=== PATIENT | male | born 1965 | race Caucasian/White ===

== ENCOUNTER 2023-04-15 14:22 | Emergency (ER) | payer MEDICARE, OTHER, SELFPAY ==
[2023-04-15 14:27] VITALS: BP 158/120
--- NOTE | 2023-04-15 15:11 | ED.GENMED ---
History of Present Illness
General
Chief Complaint: Head Injury
Source: patient and health care liaison
Exam Limitations: none
Time Seen by Provider: 04/15/23 14:58
Nursing documentation reviewed up to this point in time: agreed with
Travel History
Have you had any contact with someone who has COVID-19?: No
Do you have any symptoms of coronavirus? Fever > 100 degrees, chills, cough, shortness of breath, sore throat, loss of taste or smell, muscle aches, or headache?: No
History of Present Illness
History of Present Illness:
58-year-old male with history of schizophrenia, anxiety, parkinsonism, HLD presents from [facility] for evaluation for head injury. Patient states he was bending over to pick something up, fell forward and struck the top of his
head into drywall. His caregiver has a picture of the wall and there is a big indentation where the drywall is all broken. This occurred about 3 hours ago. There was no loss of consciousness, the patient has been acting normally since. Patient
denies headache, neck pain or any other injury. He denies N/V. He is to go back home
Past History
Past History
ED Past Medical History: Psychiatric (Schizoaffective disorder)
ED Past Surgical History: None
Social History
Tobacco: Smoker
Alcohol: None
Personal: Single
Living: other ([facility])
Review of Systems
Review of Systems
Allergies reviewed?: Yes
All Other Systems: ROS reviewed and negative except as documented in HPI and ROS
Respiratory: Denies trouble breathing
Cardiac: Denies chest pain or syncope
ABD/GI: Denies abdominal pain, nausea or vomiting
Musculoskeletal: Denies neck pain or back pain
Skin: Reports no symptoms
Neurological: Denies dizzy, headache, weakness or numbness
Phy Exam
Physical Exam
Physical Exam:
GENERAL: No acute distress. A&Ox3.
CONSTITUTIONAL: Afebrile.
EYES: PERRL, conjunctivae normal
Neck: Supple
ENMT: moist mucus membranes, Pharynx nl
RESPIRATORY: Regular respirations, nonlabored, lungs clear.
CARDIOVASCULAR: Regular rate and rhythm, no murmurs, no rubs.
GI: Soft, nontender, normal BS
MUSCULOSKELETAL: No spinal bony tenderness. Moves with ease. Well perfused.
SKIN: Warm, dry, pink
PSYCH: Normal mood and affect. Well kept, interactive and appropriate
NEUROLOGIC: Awake, alert and oriented. Speech clear. [id number] intact. Cranial nerves II through XII intact. Ambulating well with steady gait no focal neurological deficits
Course
Orders/Labs/Results
Orders:
Orders
04/15/23 15:15
Vital Signs- Treatment ONCE
Frequency: Once
Comment: Please recheck blood pressure
Vital Signs
Initial and Last Documented VS:
Initial Vital Signs
Temp Pulse Resp BP Pulse Ox
98.6 F 98 18 158/120 97
04/15/23 14:27 04/15/23 14:27 04/15/23 14:27 04/15/23 14:27 04/15/23 14:27
Last Documented Vital Signs
Temp Pulse Resp BP Pulse Ox
98.6 F 92 20 170/96 97
04/15/23 14:27 04/15/23 15:38 04/15/23 15:38 04/15/23 15:38 04/15/23 15:38
MDM/Problems Addressed
MDM/Problems Addressed:
58-year-old male presents from [facility] for evaluation for head injury. Patient states he was bending over to pick something up, fell forward and struck the top of his head into drywall. His caregiver has a picture of the wall
and there is a big indentation where the drywall is all broken. This occurred about 3 hours ago. There was no loss of consciousness, the patient has been acting normally since. Patient denies headache, neck pain or any other injury. He denies
N/V. He is to go back home
Patient is pleasant, alert and very active. No focal neurological deficits, no loss of conscious, not anticoagulated, no indication for head CT.
Patient out of bed and moving around well, normocephalic
Stable for discharge
*Critical Care Note
Total Time (30-74mins, 75-104mins- exclusive of procedures): Not Applicable
ED Attending Note
-
Portions of this chart may have been created with voice recognition software.� Occasional wrong word or��sound alike� substitutions may have occurred due to the inherent limitations of voice recognition software.
Discharge Plan
Departure
Patient Disposition: Home (Routine Discharge)
Date of Disposition: 04/15/23
Time of Disposition: 15:14
Patient with high blood pressure during this ER visit?: Yes
Condition: Good
Discharge Problem:
Head injury, acute, without loss of consciousness
Instructions: Head Injury in Adults (DC)
Prescriptions:
No Action
fluphenazine HCl 10 MG tablet
10 mg PO BID
lithium carbonate 600 MG capsule
600 mg PO BID
lisinopril 10 MG tablet
10 mg PO DAILY
divalproex 500 MG tablet extended release 24 hr
1,000 mg PO HS
benztropine 1 MG tablet
1 mg PO BID
hydrochlorothiazide 12.5 MG capsule
12.5 mg PO DAILY
docusate sodium [Colace] 100 MG capsule
100 mg PO BID
clozapine 200 MG tablet
400 mg PO HS
Activity Restrictions/Additional Instructions:
As we discussed, I see nothing worrisome in your exam.
If you develop vomiting more than once in 1 hour, confusion or headache that gets worse and worse despite Tylenol return here immediately for reevaluation.
Interventions
Interventions:
*Risk Screen - Suicide Last Done: 04/15/23 14:59
*General Assessment Last Done: 04/15/23 14:57
*Neglect/Abuse Screening Last Done: 04/15/23 14:57
ED- Fall Risk Assessment Last Done: 04/15/23 15:35
*ED COVID-19 Vaccine History Last Done: 04/15/23 14:57
*Nursing Disposition Last Done: 04/15/23 15:38
ED- Neurological Assessment Last Done: 04/15/23 15:35
ED-Skin Assessment Last Done: 04/15/23 15:35
Discharge Date and Time
Discharge Date/Time: 04/15/23 15:43
[2023-04-15 15:38] VITALS: BP 170/96
== END 2023-04-15 15:43 | disposition home or self-care (01) ==
LOC: EMR 14:22
PROVIDERS: EMERGENCY PHYSICIAN Emergency Medicine; FAMILY PHYSICIAN Family Medicine
DX: S09.90XA Unspecified injury of head, initial encounter (principal); W22.01XA Walked into wall, initial encounter; F17.200 Nicotine dependence, unspecified, uncomplicated; R03.0 Elevated blood-pressure reading, without diagnosis of hypertension
CPT/HCPCS: 99281

== ENCOUNTER → 2023-05-16 11:55 | Outpatient (REF) | payer MEDICARE, OTHER, SELFPAY | LOC: HWRAD 11:55 | PROVIDERS: ATTENDING PHYSICIAN Physician Assistant | DX: F17.210 Nicotine dependence, cigarettes, uncomplicated (principal) | CPT/HCPCS: 71271 ==

== ENCOUNTER → 2023-06-28 11:43 | Outpatient (REF) | payer MEDICARE, OTHER, SELFPAY | LOC: HWCARD 11:43 | PROVIDERS: ATTENDING PHYSICIAN Registered Nurse | DX: R94.31 Abnormal electrocardiogram [ECG] [EKG] (principal); Z79.899 Other long term (current) drug therapy | CPT/HCPCS: 93005 ==

== ENCOUNTER 2024-10-15 18:12 | Emergency (ER) | payer OTHER, SELFPAY ==
[2024-10-15 18:14] VITALS: BP 173/115
--- NOTE | 2024-10-15 19:51 | ED.GENMED ---
History of Present Illness
General
Chief Complaint: Crisis Evaluation
Source: patient and other ([facility] at [facility] who I spoke to over the phone)
Exam Limitations: none
Time Seen by Provider: 10/15/24 19:17
Nursing documentation reviewed up to this point in time: agreed with
History of Present Illness
History of Present Illness:
The patient is a 59-year-old man with a past medical history of schizophrenia who arrives from [facility]. Patient is a vague historian. Reportedly, when I spoke to the cutting and splicing supervisor at at the patient's residence, she reported that the
patient grew angry and agitated when asked to take his medication this morning. It was reported that the patient used profanity but did not physically hurt anyone and eventually did take his morning medication. Patient did admit to me that he was
screaming earlier in the day and does not like to take his medications because he does not like to get up. Reportedly, the patient requested to come to the hospital, however, the patient denies physical pain to me and any concerns to me. He denies
wanting to hurt anybody. He denies any suicidal thoughts. He reports that he hears a voice that he believes is his father ' telling him to go to [facility]'. He denies chest pain, shortness of breath, dizziness, and cough. Patient is eating a turkey
sandwich and is calm with me.
Past History
Past History
ED Past Medical History: Hypercholesterolemia, Psychiatric (Schizoaffective disorder) and Other
ED Past Surgical History: Other
Social History
Tobacco: Smoker
Alcohol: None
Drug: Other
Personal: Single
Living: other ([facility])
Employment: Other
Family History
Family History: Other
Review of Systems
Review of Systems
Allergies reviewed?: Yes
Constitutional: Reports no symptoms
Respiratory: Reports no symptoms
Cardiac: Reports no symptoms
ABD/GI: Reports no symptoms
: Reports no symptoms
Musculoskeletal: Reports no symptoms
Skin: Reports no symptoms
Endocrine: Reports no symptoms
Hematologic/Lymphatic: Reports no symptoms
Psychiatric: Reports hallucinations (Auditory hallucinations from his father)
Phy Exam
Physical Exam
Physical Exam:
Physical Exam
General: Disheveled but calm, eating a turkey sandwich
Neck: supple. no meningeal signs. normal posterior pharynx
Heart: s1/s2 regular rate and rhythm, no murmur. equal radial pulses.
Lungs: no acute respiratory distress. clear bilaterally
Abdomen: normal bowel sounds. not tender. no CVAT
Neuro: alert and orientedx3. no focal neurological deficits
Skin: no rash
Psychiatric: well kept. At times appears distracted and takes a while to answer questions but eventually answers the question.
Extremities: no edema. no calf tenderness. negative homans. good distal pulses
Course
Orders/Labs/Results
Orders:
Orders
10/15/24 18:38
Crisis Consult Urgent
Reason for Consult: schizophrenia, aggression, refused meds this AM.
Comment: Lives at [facility]
10/15/24 19:51
Lorazepam [Ativan] 1 mg PO NOW STA
10/15/24 20:15
Melatonin 10 mg PO NOW STA
10/15/24 20:19
Haloperidol [Haldol] 20 mg PO NOW STA
10/15/24 20:35
[place] Carbonate Regular Rel. [Eskalith Regular Release] 900 mg PO NOW STA
Vital Signs
Initial and Last Documented VS:
Initial Vital Signs
Temp Pulse Resp BP Pulse Ox
98.6 F 84 18 173/115 98
10/15/24 18:14 10/15/24 18:14 10/15/24 18:14 10/15/24 18:14 10/15/24 18:14
Last Documented Vital Signs
Temp Pulse Resp BP Pulse Ox
98.4 F 80 18 150/87 96
10/15/24 21:42 10/15/24 23:01 10/15/24 21:42 10/15/24 23:01 10/15/24 23:01
MDM/Problems Addressed
Differential Diagnosis Includes:
Acute on chronic schizophrenia, acute UTI
MDM/Problems Addressed:
Patient presents after reportedly having agitated behavior
Acute Exacerbation and/or Progression of Chronic Illness: Psychiatric illness
*Pulse Oximetry
SaO2: 98
Oxygen Mode of Delivery: Room air
Patient hypoxic: no
*EKG
Interpreted by ED Provider?: NA
*Display Mechanic Interpretation
Rate: Display Mechanic- N/A
*Critical Care Note
Total Time (30-74mins, 75-104mins- exclusive of procedures): Not Applicable
Data Reviewed
Source: patient and other ([facility] at [facility])
Further Testing Considered But Not Given:
Patient has a normal neurological exam. There is no sign of stroke. He is taking his medication here and has been calm and cooperative. He has been directable. He has had no chest pain or physical complaints, therefore, I do not think patient
needs emergent blood work.
Patient Management
Social determinants of health affecting care: Living situation and Strong social support
Discussion with other providers: Other (Crisis came to evaluate patient. They do not feel there is an acute psychiatric issue)
Escalation/DeEscalation of care consider admission/obs:
Patient has been calm and cooperative. He denies suicidal and homicidal thoughts. He is eating and resting. He has a normal neurological exam and has a steady gait. I do not feel he needs emergent blood work. He has been afebrile. He has no
complaints of urinary symptoms such as burning or frequency.
ED Attending Note
-
Portions of this chart may have been created with voice recognition software.� Occasional wrong word or��sound alike� substitutions may have occurred due to the inherent limitations of voice recognition software.
Discharge Plan
Departure
Patient Disposition: Home (Routine Discharge)
Date of Disposition: 10/15/24
Time of Disposition: 23:20
Patient with high blood pressure during this ER visit?: Yes
Condition: Good
Covid-19: Not Applicable
Discharge Problem:
Behavioral health-related complaint
Instructions: BLOOD PRESSURE
Prescriptions:
No Action
fluphenazine HCl 10 MG tablet
10 mg PO BID
lithium carbonate 600 MG capsule
600 mg PO BID
lisinopril 10 MG tablet
10 mg PO DAILY
divalproex 500 MG tablet extended release 24 hr
1,000 mg PO HS
benztropine 1 MG tablet
1 mg PO BID
hydrochlorothiazide 12.5 MG capsule
12.5 mg PO DAILY
docusate sodium [Colace] 100 MG capsule
100 mg PO BID
clozapine 200 MG tablet
400 mg PO HS
Referrals:
Amrita Hugo PA-C [Family Provider, Internal Medicine]
Activity Restrictions/Additional Instructions:
Stephen was given 900 mg of lithium, 20 mg of Haldol, 1 mg of Ativan, and 10 mg of melatonin around 8:00 PM tonight.
This was given to him according to the medication list that was sent with him. Additionally, Ativan was given to him due to patient request.
Interventions
Interventions:
*Risk Screen - Suicide Last Done: 10/15/24 19:00
*General Assessment Last Done: 10/15/24 19:00
*Neglect/Abuse Screening Last Done: 10/15/24 19:00
*ED- Fall Risk Assessment Last Done: 10/15/24 19:00
ED-Psychological Assessment Last Done: 10/15/24 18:14
Discharge Date and Time
Print Language: BOLIVIAN
[2024-10-15] MEDS: ATIVAN 1 MG PO (19:56)
[2024-10-15] MEDS: HALDOL 20 MG PO (20:56)
[2024-10-15] MEDS: MELATONIN 10 MG PO (20:57)
[2024-10-15] MEDS: ESKALITH REGULAR RELEASE 900 MG PO (20:57)
[2024-10-15 21:42] VITALS: BP 184/87
[2024-10-15 23:01] VITALS: BP 150/87
--- NOTE | 2024-10-16 02:42 | DOWNTIME ---
There was a [employer] Downtime on 10/16/2024 from 0100 to 10/16/2024 at 0235. Downtime documentation of patient's care, including medication administrations, has been reconciled in the electronic record per guidelines. Refer to the
patient's paper chart under the miscellaneous tab to see printed paper medication records and downtime forms.
== END 2024-10-16 06:26 | disposition home or self-care (01) ==
LOC: EMR 18:12
PROVIDERS: EMERGENCY PHYSICIAN Emergency Medicine; FAMILY PHYSICIAN Physician Assistant
DX: F20.9 Schizophrenia, unspecified (principal); R45.1 Restlessness and agitation; E78.00 Pure hypercholesterolemia, unspecified; F17.200 Nicotine dependence, unspecified, uncomplicated
CPT/HCPCS: 99283

== ENCOUNTER 2024-10-25 23:22 | Emergency (ER) | payer OTHER, SELFPAY ==
[2024-10-25 23:51] VITALS: BP 118/70
[2024-10-26 00:42] VITALS: BP 133/68
--- NOTE | 2024-10-26 01:24 | ED.GENMED ---
History of Present Illness
General
Chief Complaint: Sleep Disturbances
Source: patient
Time Seen by Provider: 10/26/24 00:25
History of Present Illness
History of Present Illness:
Note:
CHIEF COMPLAINT(S)
Auditory hallucinations and concerns about medication effects.
HISTORY OF PRESENT ILLNESS
The patient is a 59-year-old male who presented to the emergency department with auditory hallucinations, specifically hearing thunder. He expressed feeling terrified and attributed his distress to problems related to his father. He denied any
suicidal thoughts. The patient mentioned that his medication, Ativan, has him 'screwed up,' indicating possible side effects or ineffective management of his symptoms. He resides in [place] and expressed some confusion during the conversation.
PHYSICAL EXAM
General: Alert, no acute distress.
Skin: Warm, dry.
Head: Normocephalic, atraumatic.
Neck: Supple, trachea midline.
Eye, Ears, Nose, Mouth and Throat: Oral mucosa moist, tongue-smacking observed.
Cardiovascular: Normal peripheral perfusion, No edema.
Respiratory: Respirations are non-labored.
Gastrointestinal: Abdomen nondistended.
Back: Normal range of motion, Normal alignment.
Musculoskeletal: Normal range of motion, normal strength.
Neurological: Alert and oriented to person, place, time, and situation, No focal neurological deficit observed.
Psychiatric: Cooperative, appropriate mood & affect, though speech is sometimes difficult to understand.
DIFFERENTIAL DIAGNOSIS
The Differential Diagnosis includes, in no particular order and is not limited to:
1. Medication side effects
2. Psychiatric disorder (e.g., schizophrenia, bipolar disorder with psychotic features)
3. Substance-induced psychotic disorder
4. Delirium
5. Temporal lobe epilepsy
6. Major depressive disorder with psychotic features
7. Dementia with Lewy bodies
8. Anxiety disorder
9. Post-traumatic stress disorder
10. Auditory hallucination due to hearing impairment
CARE-UPDATE
10/26/24 - 01:13
Crisis team assessed the patient and confirmed no suicidal ideation. Patients mental status is approaching baseline. Coordination with the patients current living house is underway to verify if they are prepared to receive him back.
Disposition:
SUMMARY OF ENCOUNTER
The patient, a 59-year-old male, presented to the emergency department with auditory hallucinations, specifically hearing thunder, and expressed concerns regarding his medication Ativan (Lorazepam). He was assessed by the crisis team, and no
suicidal ideation was noted. The patient resides in a prison in [place] and has expressed some frustration with his living facility. His mental status is approaching baseline.
DISPOSITION
Discharge to prison.
ASSESSMENT
The patient appears stable with no suicidal ideation. The auditory hallucinations and confusion may be attributed to possible side effects of his current medication regimen or other psychiatric or neurological conditions as listed in the
differential diagnosis. Coordination with the patients living facility has been established for his return.
MANAGEMENT OF THE PATIENTS CARE WAS DISCUSSED WITH
Crisis team and the patient�s prison.
PLAN
Discharge the patient back to his prison with coordination made with crisis services to ensure a stable transition.
PATIENT EDUCATION AND COUNSELING
The patient was educated about continuing to monitor his symptoms and report any exacerbations or new symptoms to his healthcare provider. Emphasis was placed on the importance of medication adherence and follow-up with his outpatient mental health
provider.
FOLLOW-UP INSTRUCTIONS
Arrange for follow-up with the patients primary mental health provider to evaluate and possibly adjust his medication regimen as necessary.
MEDICAL DECISION MAKING
- Complexity of Data Reviewed: Chronic conditions affecting care include potential medication side effects, psychiatric disorder, substance-induced psychotic disorder, delirium, temporal lobe epilepsy, major depressive disorder with psychotic
features, dementia with Lewy bodies, anxiety disorder, PTSD, and auditory hallucination due to hearing impairment.
- Data:
Category 3: Discussion of management with the crisis team and coordination with the patient�s prison.
- Risk: Prescription drug management or therapy requiring monitoring for toxicity. Consideration of Admission/Observation: Escalation of care including admission/observation was considered given the complexity and risk of the patients presenting
complaint, exam findings, and/or their underlying comorbidities. However, ultimately I feel the patient is safe for outpatient management with close follow up. Reasoning: Work-up reassuring, does not reveal any acute life/organ threatening
processes, patients symptoms well controlled upon reevaluation, reexamination is reassuring, vitals are stable, patient agreeable with discharge, reliable for follow-up.
DIAGNOSIS
Psychotic disorder, unspecified (ICD-10: F29).
Past History
Past History
ED Past Medical History: Hypercholesterolemia, Psychiatric (Schizoaffective disorder) and Other
ED Past Surgical History: Other
Social History
Tobacco: Smoker
Alcohol: None
Drug: Other
Personal: Single
Living: other ([facility])
Employment: Other
Family History
Family History: Other
Phy Exam
Physical Exam
Physical Exam:
.
Course
Orders/Labs/Results
Orders:
Orders
10/26/24 00:36
Crisis Consult Urgent
Reason for Consult: schizophrenia
Vital Signs
Initial and Last Documented VS:
Initial Vital Signs
Temp Pulse Resp Pulse Ox
97.2 F 75 18 97
10/25/24 23:48 10/25/24 23:48 10/25/24 23:48 10/25/24 23:48
Last Documented Vital Signs
Temp Pulse Resp BP Pulse Ox
98.1 F 72 16 133/68 94
10/26/24 00:42 10/26/24 00:42 10/26/24 00:42 10/26/24 00:42 10/26/24 00:42
*Pulse Oximetry
SaO2: 96
Oxygen Mode of Delivery: Room air
Patient hypoxic: no
*Critical Care Note
Total Time (30-74mins, 75-104mins- exclusive of procedures): Not Applicable
ED Attending Note
-
Portions of this chart may have been created with voice recognition software.� Occasional wrong word or��sound alike� substitutions may have occurred due to the inherent limitations of voice recognition software.
Discharge Plan
Departure
Patient Disposition: Home (Routine Discharge)
Date of Disposition: 10/26/24
Time of Disposition: 01:26
Patient with high blood pressure during this ER visit?: No
Discharge Problem:
Schizophrenia
Instructions: Schizophrenia
Prescriptions:
No Action
fluphenazine HCl 10 MG tablet
10 mg PO BID
lithium carbonate 600 MG capsule
600 mg PO BID
lisinopril 10 MG tablet
10 mg PO DAILY
divalproex 500 MG tablet extended release 24 hr
1,000 mg PO HS
benztropine 1 MG tablet
1 mg PO BID
hydrochlorothiazide 12.5 MG capsule
12.5 mg PO DAILY
docusate sodium [Colace] 100 MG capsule
100 mg PO BID
clozapine 200 MG tablet
400 mg PO HS
Referrals:
Amrita Hugo PA-C [Family Provider, Internal Medicine]
Activity Restrictions/Additional Instructions:
Please see your psychiatrist in the next 1 week for follow-up and reevaluation. Return immediately for suicidal ideation, worsening symptoms or any other concerns.
Interventions
Interventions:
*Risk Screen - Suicide Last Done: 10/25/24 23:48
*General Assessment Last Done: 10/25/24 23:48
*Neglect/Abuse Screening Last Done: 10/25/24 23:48
*ED- Fall Risk Assessment Last Done: 10/26/24 00:26
*ED COVID-19 Vaccine History Last Done: 10/26/24 00:26
ED-Suicide Risk Assessment Last Done: 10/26/24 00:34
ED- Neurological Assessment Last Done: 10/26/24 00:28
ED-Psychological Assessment Last Done: 10/26/24 00:28
Discharge Date and Time
Print Language: DOMINICAN
[2024-10-26 02:20] VITALS: BP 112/60
== END 2024-10-26 02:20 | disposition home or self-care (01) ==
LOC: EMR 23:22
PROVIDERS: EMERGENCY PHYSICIAN Emergency Medicine; FAMILY PHYSICIAN Physician Assistant
DX: F25.9 Schizoaffective disorder, unspecified (principal); F17.200 Nicotine dependence, unspecified, uncomplicated
CPT/HCPCS: 99283

== ENCOUNTER 2024-10-31 13:45 | Emergency (ER) | payer MEDICARE, OTHER, SELFPAY ==
[2024-10-31 14:01] VITALS: BP 104/54
[2024-10-31 14:07] VITALS: BMI 39.4
--- NOTE | 2024-10-31 14:15 | EDRN ---
Dr. Nagy in with pt at this time.
--- NOTE | 2024-10-31 14:18 | ED.GENMED ---
History of Present Illness
General
Chief Complaint: Suicidal Ideation
Source: patient
Time Seen by Provider: 10/31/24 14:09
History of Present Illness
History of Present Illness:
Patient presents emergency department after being referred from the [facility] for suicidal ideation. Patient has somewhat tangential speech/thoughts, but does admit to suicidal ideation and describes wanting to drink a bottle of
[place] in order to do that. He denies any physical complaints such as chest pain, shortness of breath, headache, etc.
Past History
Past History
ED Past Medical History: Hypercholesterolemia, Psychiatric (Schizoaffective disorder) and Other (Hepatitis, hyperlipidemia)
Social History
Tobacco: Smoker
Alcohol: None
Personal: Single
Living: other (care home [facility])
Family History
Family History: Other
Phy Exam
Physical Exam
Physical Exam:
GENERAL: Alert , in no apparent distress, slightly unkempt
EYE: pupils equal and reactive
NECK: Supple, no significant adenopathy.
ENT: o/p clr, mmm.
CARDIAC: Regular rate and rhythm .
LUNGS: Clear breath sounds bilaterally, no acute respiratory distress, no wheezes/rales/rhonchi
ABDOMEN: Soft, without focal tenderness, no r/g, no cvat
NEUROLOGICAL: Alert and oriented, no focal neuro deficits
SKIN: Warm and dry, skin intact.
MUSCULOSKELETAL: No edema, well perfused.
PSYCH: Expresses SI, tangential speech
Course
Orders/Labs/Results
Orders:
Orders
10/31/24 14:06
1:1 Observation - Suicide/ Violent Behavior As Directed
Crisis Consult Urgent
Reason for Consult: suicidal ideation
10/31/24 16:58
Alcohol Urgent
Complete Blood Count/No Diff Urgent
Comprehensive Metabolic Panel Urgent
10/31/24 17:35
Fentanyl, Urine Urgent
Urine Drug Abuse Screen Urgent
Date Specimen was Collected: 10/31/24
Time Specimen was Collected: 17:21
10/31/24 18:51
Nicotine [Nicoderm Transdermal] 21 mg .ROUTE .STK-MED ONE
11/01/24 08:00
Nicotine [Nicoderm Transdermal] 21 mg TRANSDERM DAILY
Abnormal Lab Results
10/31/24 10/31/24
16:58 17:35
RBC 4.30 L 10^6/uL
(4.70-6.10)
MCV 94.9 H fL
(80.0-94.0)
MCH 33.3 H pg
(27.0-31.0)
Glucose 125 H mg/dl
(70-99)
AST 15 L U/L
(17-59)
U Benzodiazepines Scrn Positive H
(Negative)
10/31/24 16:58
10/31/24 16:58
Vital Signs
Initial and Last Documented VS:
Initial Vital Signs
Temp Pulse BP Pulse Ox
98.1 F 75 104/54 97
10/31/24 14:01 10/31/24 14:01 10/31/24 14:01 10/31/24 14:01
Last Documented Vital Signs
Temp Pulse BP Pulse Ox
98.1 F 75 104/54 97
10/31/24 14:01 10/31/24 14:01 10/31/24 14:01 10/31/24 14:20
*Pulse Oximetry
SaO2: 97
Oxygen Mode of Delivery: Room air
Update Note
Update Note:
Patient presents to the Emergency Department with __SI
Number and Complexity of Problems Addressed at the Encounter
� Chronic conditions affecting care:
� Acute Exacerbation and/or Progression of Chronic Illness:
� Differential Diagnosis includes: But not limited to major depressive disorder, schizophrenia, etc.
Amount and/or Complexity of Data to be Reviewed and Analyzed
� I performed an independent evaluation of and my interpretation is:
EKG:
CT:
Xrays:
Laboratory Studies:
Other:
� Review of other/old records reveals:
� Clinical information was obtained by an independent historian:
� Prescriptions/Medications Considered but not given:
� Further testing considered but not performed:
Risk of Complications and/or Morbidity or Mortality of Patient Management
� Social determinants of health affecting care:
� Discussion with other providers (PCP, Hospitalists, Consultants, etc):
� Escalation of care including admission/observation vs risk of discharge considered:
ED Attending Note
-
Portions of this chart may have been created with voice recognition software.� Occasional wrong word or��sound alike� substitutions may have occurred due to the inherent limitations of voice recognition software.
Discharge Plan
Departure
Patient Disposition: Psych Facility
Date of Disposition: 10/31/24
Time of Disposition: 18:56
Discharge Problem:
Suicidal ideation
Prescriptions:
No Action
fluphenazine HCl 10 MG tablet
10 mg PO BID
lithium carbonate 600 MG capsule
600 mg PO BID
lisinopril 10 MG tablet
10 mg PO DAILY
divalproex 500 MG tablet extended release 24 hr
1,000 mg PO HS
benztropine 1 MG tablet
1 mg PO BID
hydrochlorothiazide 12.5 MG capsule
12.5 mg PO DAILY
docusate sodium [Colace] 100 MG capsule
100 mg PO BID
clozapine 200 MG tablet
400 mg PO HS
Referrals:
UNKNOWN - PT NOT,INTERVIEWE [Family Provider]
Interventions
Interventions:
*Risk Screen - Suicide Last Done: 10/31/24 13:55
*General Assessment Last Done: 10/31/24 13:55
*Neglect/Abuse Screening Last Done: 10/31/24 13:55
*ED- Fall Risk Assessment Last Done: 10/31/24 13:55
*ED COVID-19 Vaccine History Last Done: 10/31/24 14:08
ED-Psychological Assessment Last Done: 10/31/24 14:08
Discharge Date and Time
Print Language: HEBREW
--- NOTE | 2024-10-31 14:38 | EDRN ---
Pt administered boxed lunch and warm blanket at this time. Pt kept asking for HOB to be elevated but bed is out of battery at this time.
--- NOTE | 2024-10-31 16:55 | EDRN ---
Blood drawn and sent.
[2024-10-31 17:08] LABS: Hematocrit 40.8 % (39.0-52.0); Hemoglobin 14.3 g/dL (13.0-18.0); Mean Corp Hgb Conc. 35.0 g/dL (33.0-37.0); Mean Corpuscular Volume 94.9 fL (80.0-94.0); Platelet Count 182 10^3/uL (130-400); Red Cell Dist. Width 11.9 % (11.5-14.5)
[2024-10-31 17:27] LABS: ALT (SGPT) 15 U/L (0-50); AST (SGOT) 15 U/L (17-59); Albumin 4.3 g/dl (3.5-5.0); Alkaline Phosphatase 38 U/L (38-126); Blood Urea Nitrogen 11 mg/dl (9-20); Calcium 9.7 mg/dl (8.4-10.2); Carbon Dioxide 26 mmol/L (22-30); Chloride 105 mmol/L (98-107); Estimated Creatinine Clearance > 125 ml/min; Glucose 125 mg/dl (70-99); Potassium 4.4 mmol/L (3.5-5.1); Sodium 137 mmol/L (135-145); Total Protein 7.0 g/dl (6.3-8.2); eGFR > 60.00
--- NOTE | 2024-10-31 17:38 | EDRN ---
Urine spec obtained and sent. Supper ordered by pt at this time.
[2024-10-31] MEDS: NICODERM TRANSDERMAL 21 MG TRANSDERM (18:55)
--- NOTE | 2024-10-31 18:57 | EDRN ---
Patch ordered for morning though requested for now. Dr. Nagy aware given now.
[2024-10-31] MEDS: ATIVAN 1 MG PO (19:44)
[2024-10-31] MEDS: DEPAKOTE SPRINKLE 250 MG PO (21:25)
[2024-10-31] MEDS: ESKALITH REGULAR RELEASE 900 MG PO (21:25)
[2024-10-31] MEDS: HALDOL 30 MG PO (21:26)
[2024-10-31 22:02] VITALS: BP 156/66
== END 2024-10-31 23:15 ==
LOC: EMR 13:45
PROVIDERS: EMERGENCY PHYSICIAN Emergency Medicine
DX: R45.851 Suicidal ideations (principal); F25.9 Schizoaffective disorder, unspecified; E78.00 Pure hypercholesterolemia, unspecified; F17.200 Nicotine dependence, unspecified, uncomplicated
CPT/HCPCS: 99285; 80053; 80306; 80307; 82077; 85027

== ENCOUNTER 2024-12-01 17:23 | Emergency (ER) | payer MEDICARE, OTHER, SELFPAY ==
[2024-12-01 17:30] VITALS: BP 155/101; BMI 34.5
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
[2024-12-01 19:48] LABS: Hematocrit 42.0 % (39.0-52.0); Hemoglobin 14.2 g/dL (13.0-18.0); Mean Corp Hgb Conc. 33.8 g/dL (33.0-37.0); Mean Corpuscular Volume 94.6 fL (80.0-94.0); Nucleated Red Blood Cells % 0 % (-); Platelet Count 208 10^3/uL (130-400); Red Cell Dist. Width 11.9 % (11.5-14.5)
[2024-12-01] MEDS: ATIVAN 1 MG PO (20:12)
[2024-12-01 20:17] LABS: AST (SGOT) 16 U/L (17-59); Albumin 4.4 g/dl (3.5-5.0); Alkaline Phosphatase 46 U/L (38-126); Blood Urea Nitrogen 9 mg/dl (9-20); Calcium 9.7 mg/dl (8.4-10.2); Carbon Dioxide 25 mmol/L (22-30); Chloride 103 mmol/L (98-107); Estimated Creatinine Clearance > 125 ml/min; Glucose 190 mg/dl (70-99); Potassium 4.5 mmol/L (3.5-5.1); Sodium 136 mmol/L (135-145); Total Protein 7.1 g/dl (6.3-8.2); eGFR > 60.00
[2024-12-01 20:25] VITALS: BP 158/78
[2024-12-01 20:30] LABS: ALT (SGPT) 19 U/L (0-50)
== END 2024-12-01 21:45 ==
LOC: EMR 17:23
PROVIDERS: Physician Assistant; EMERGENCY PHYSICIAN Student in an Organized Health Care Education/Training Program
DX: F25.9 Schizoaffective disorder, unspecified (principal); E78.00 Pure hypercholesterolemia, unspecified; F17.200 Nicotine dependence, unspecified, uncomplicated
CPT/HCPCS: 99283; 80053; 80306; 80307; 82077; 85025

== ENCOUNTER → 2024-12-13 09:57 | Outpatient (REF) | payer MEDICARE, OTHER, SELFPAY | LOC: HWRAD 09:57 | PROVIDERS: ATTENDING PHYSICIAN Registered Nurse; FAMILY PHYSICIAN Physician Assistant | DX: F17.210 Nicotine dependence, cigarettes, uncomplicated (principal); R94.31 Abnormal electrocardiogram [ECG] [EKG] | CPT/HCPCS: 71271; 93005 ==

== ENCOUNTER 2025-02-17 18:09 | Emergency (ER) | payer MEDICARE, OTHER, SELFPAY ==
[2025-02-17 18:14] VITALS: BP 175/85
[2025-02-17] MEDS: ATIVAN 1 MG PO ×2 (19:12→20:00)
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
[2025-02-17 19:18] LABS: Hematocrit 44.8 % (39.0-52.0); Hemoglobin 15.7 g/dL (13.0-18.0); Mean Corp Hgb Conc. 35.0 g/dL (33.0-37.0); Mean Corpuscular Volume 92.9 fL (80.0-94.0); Platelet Count 253 10^3/uL (130-400); Red Cell Dist. Width 12.0 % (11.5-14.5)
[2025-02-17 19:38] LABS: ALT (SGPT) 16 U/L (0-50); AST (SGOT) 18 U/L (17-59); Acetaminophen < 10 ug/ml (10-30); Albumin 4.4 g/dl (3.5-5.0); Alkaline Phosphatase 57 U/L (38-126); Blood Urea Nitrogen 8 mg/dl (9-20); Calcium 9.6 mg/dl (8.4-10.2); Carbon Dioxide 22 mmol/L (22-30); Chloride 107 mmol/L (98-107); Glucose 116 mg/dl (70-99); Lithium 0.5 mmol/L (0.6-1.2); Potassium 4.1 mmol/L (3.5-5.1); Salicylate < 1.0 mg/dl (2.0-20.0); Sodium 135 mmol/L (135-145); Total Protein 7.3 g/dl (6.3-8.2); eGFR > 60.00
[2025-02-17] MEDS: SAPHRIS 10 MG SL (20:00)
[2025-02-18] MEDS: ATIVAN 1 MG PO ×2 (04:52→06:13)
[2025-02-18 06:18] VITALS: BP 145/85
[2025-02-18 07:49] VITALS: BMI 31.2
== END 2025-02-18 11:27 ==
LOC: EMR 18:09
PROVIDERS: EMERGENCY PHYSICIAN Emergency Medicine
DX: F25.9 Schizoaffective disorder, unspecified (principal); R45.851 Suicidal ideations; E78.00 Pure hypercholesterolemia, unspecified; F17.200 Nicotine dependence, unspecified, uncomplicated; Z91.148 Patient's other noncompliance with medication regimen for other reason
CPT/HCPCS: 99285; 80053; 80143; 80178; 80179; 82077; 85027; 93005